=== PATIENT | female | born 1970 | race Caucasian/White ===

== ENCOUNTER → 2020-07-23 | Outpatient (CLI) | payer BC ==
--- NOTE | 2020-07-23 11:58 | US ---
EXAMINATION TYPE: US venous doppler duplex LE DATE OF EXAM: 07/23/2020 11:14 AM COMPARISON: NONE CLINICAL HISTORY: R60.0 Localized edema. Patient fell edema SIDE PERFORMED: Bilateral TECHNIQUE: The lower extremity deep venous system is examined utilizing real time linear array sonog kody with graded compression, doppler sonography and color-flow sonography. VESSELS IMAGED: External Iliac Vein (EIV) Common Femoral Vein Deep Femoral Vein Greater Saphenous Vein * Femoral Vein Popliteal Vein Small Saphenous Vein * Proximal Calf Veins (* superficial vessels) Grayscale, color Doppler, spectral Doppler imaging performed of the bilateral lower extremity veins. There is normal flow, compressibility, vascular waveforms Right Leg: Negative for DVT Left Leg: Negative for DVT IMPRESSION: No evident deep venous thrombosis at or above the knees.
--- NOTE | 2020-07-23 12:08 | XR ---
Left knee HISTORY: Trauma 5 weeks prior and pain 3 views of the left knee Bone mineralization, joint spaces and alignment are maintained. Soft tissue calcification shows a non aggressive appearance at the level of the patellar tendon and also soft tissues of the medial left kn ee, also prevascular IMPRESSION: No fracture or dislocation.
== END | disposition home or self-care (01) ==
LOC: RADUSWWP 10:55
PROVIDERS: ATTEND Family Medicine
DX: S89.92XA Unspecified injury of left lower leg, initial encounter (principal); R60.0 Localized edema
CPT/HCPCS: 93970

== ENCOUNTER → 2020-10-05 | Outpatient (CLI) | payer BC ==
--- NOTE | 2020-10-05 14:34 | CT ---
EXAMINATION TYPE: CT abdomen pelvis w con DATE OF EXAM: 10/05/2020 COMPARISON: None HISTORY: Lt sided epigastric pain CT DLP: 621.0 mGycm CONTRAST: CT scan of the abdomen and pelvis is performed with Oral Contrast and with IV Contrast, patient injec raymond with 100 mL of Isovue 300. FINDINGS: LUNG BASES-: No visible nodule. No infiltrate. LIVER/GB: No calcified gallstones. No space occupying hepatic lesion. Biliary tree is of normal ca liber. PANCREAS: No inflammation. No distinct mass. SPLEEN: No splenic enlargement. No lesion seen. ADRENALS: No nodule. No thickening. KIDNEYS/BLADDER: No hydronephrosis. No nephrolithiasis. No distinct renal mass. Urinary bladder g rossly unremarkable. BOWEL: Normal appendix. Normal bowel caliber. No inflammation. GENITAL ORGANS: No gross abnormality. LYMPH NODES: No greater than 1cm abdominal or pelvic lymph nodes are appreciated. AORTA: No significant abnormality. OSSEOUS STRUCTURES: No significant abnormality is seen. OTHER: No significant additional abnormality is seen. IMPRESSION: 1. No acute process identified.
== END | disposition home or self-care (01) ==
LOC: RADCTMAIN 12:07
PROVIDERS: ATTEND Family Medicine
DX: R10.9 Unspecified abdominal pain (principal)
CPT/HCPCS: 74177; Q9967

== ENCOUNTER → 2024-10-07 | Outpatient (CLI) | payer BC ==
--- NOTE | 2024-10-07 12:42 | XR ---
EXAMINATION TYPE: XR foot complete RT DATE OF EXAM: 10/07/2024 COMPARISON: NONE CLINICAL INDICATION: Female, 54 years old with history of M79.671 PAIN IN RT FOOT; TECHNIQUE: 3 views FINDINGS: Generalized osteopenia. Small os peroneum. Tiny posterior heel spur. No acute fracture, sub luxation, or dislocation. IMPRESSION: No acute osseous abnormality seen. [facility], , 10/07/2024 12:40 PM
== END | disposition home or self-care (01) ==
LOC: RADXRMAIN 08:40
PROVIDERS: ATTEND Family Medicine
DX: M79.671 Pain in right foot (principal)

== ENCOUNTER → 2024-11-04 | Outpatient (CLI) | payer BC ==
--- NOTE | 2024-11-04 13:07 | BD ---
EXAMINATION TYPE: Axial Bone Density DATE OF EXAM: 11/04/2024 CLINICAL HISTORY: 54 years old Female. ICD-10 CODE: Z78.0 POST KALPES[facility] , Additional History: Height: 64 Weight: 189 FRAX RISK QUESTIONS: Secondary Osteoporosis: Current Tobacco Use: yes RISK FACTORS HISTORY OF: MEDICATIONS: EXAM MEASUREMENTS: Bone mineral densitometry was performed using the [employer] System. Bone mineral density as measured about the Lumbar spine is: ----- L1-L4(G/cm2): 0.890 T Score Values are as follows: ----- L1: -2.2 ----- L2: -2.0 ----- L3: -2.6 ----- L4: -3.0 ----- L1-L4: -2.4 Z Score Values are as follows: ----- L1: -2.1 ----- L2: -1.8 ----- L3: -2.4 ----- L4: -2.8 ----- L1-L4: -2.3 First dexa at [facility] Bone mineral density about the R hip (g/cm2): 0.757 Bone mineral density about the L hip (g/cm2): 0.778 T Score values are as follows: -----R Neck: -2.5 -----L Neck: -2.2 -----R Total: -2.0 -----L Total: -1.8 Z Score values are as follows: -----R Neck: -1.9 -----L Neck: -1.6 -----R Total: -1.8 -----L Total: -1.6 First dexa at [facility] FRAX%s: The graph provided illustrates a 9.8% chance for a major osteoporotic fx and a 2.7% chance fo r the hips probability for fx in 10 years time. IMPRESSION: Osteoporosis (T Score less than -2.5). There is increased fracture risk and therapy is usually indicated based on age. Re-Screen 1-2 years. NOTE: T-SCORE=SD OF THE YOUNG ADULT MEAN. [facility], , 11/04/2024 1:04 PM
== END | disposition home or self-care (01) ==
LOC: RADBDWWP 10:28
PROVIDERS: ATTEND Family Medicine
DX: Z12.31 Encounter for screening mammogram for malignant neoplasm of breast (principal); Z78.0 Asymptomatic menopausal state; M81.8 Other osteoporosis without current pathological fracture
CPT/HCPCS: 77063; 77067; 77080